=== PATIENT | male | born 1990 | race Two or more races ===

== ENCOUNTER 2024-10-26 02:57 | Emergency (ER) | payer MEDICAID, SELFPAY ==
[2024-10-26 03:03] VITALS: BMI 30.1
[2024-10-26 03:15] VITALS: BP 146/91; PULSE 123; RESP 19; TEMP 36.8; O2SAT 98
--- NOTE | 2024-10-26 04:56 | XR_ITS ---
Examination: Hand, right 3 views Technique: Hand AP, oblique, lateral 3 views Date and time of exam: October 26, 2024 0512 hrs. Indications: Laceration to the hand today, hand pain Findings: Old fracture fifth metacarpal Small old bone density proximal interphalangeal joint fifth digit Tiny opacities in the soft tissue adjacent to the middle phalanx fifth digit on the AP view as well as adjacent to the proximal phalanx third digit No acute fracture. Impression: Tiny opacities in the soft tissue third and fifth digits as above
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
[2024-10-26 06:00] VITALS: BP 141/90; PULSE 94; RESP 16; TEMP 36.9; O2SAT 95
== END 2024-10-26 06:01 | disposition home or self-care (01) ==
PROVIDERS: Emergency Provider Emergency Medicine
DX: Z02.89 Encounter for other administrative examinations (principal); S61.411A Laceration without foreign body of right hand, initial encounter; V89.2XXA Person injured in unspecified motor-vehicle accident, traffic, initial encounter
CPT/HCPCS: 12001; 73130; 99283